=== PATIENT | female | born 1955 | race Caucasian/White ===

== ENCOUNTER 2023-10-13 00:11 | Emergency (ER) | payer OTHER, SELFPAY ==
--- NOTE | ~2023-10-13 | CT_ITS ---
Clinical Indication: Dyspnea, abdominal pain CT Scan of the Chest, Abdomen, and Pelvis with Contrast: Technique: Contiguous sections were acquired throughout the chest, abdomen, and pelvis after intraven ous administration of 100 cc of Omnipaque 350. Dose reduction technique was used on this scan by uti lizing automated exposure control and iterative reconstruction technique. The dose-length product (DL P) was 4515.75 mGy-cm. Findings: There is no evidence of any significant mediastinal, hilar or axillary lymphadenopathy. The mediastin al soft tissues appear normal. No pulmonary nodule seen. No aortic aneurysm or dissection. There is no evidence of pleural or pericardial effusion. The lungs are clear. No pulmonary nodules or infiltrates are noted. The liver, spleen, pancreas, gallbladder, adrenals and right kidney are within normal limits. 5 mm n on-obstructing left renal stone noted. No evidence of aortic aneurysm. No lymphadenopathy. No bowel obstruction or bowel wall thickening. There is no evidence to suggest acute appendicitis. Th ere is a moderate to large low anterior ventral fat-containing hernia. Urinary bladder is unremarkable. No pelvic mass seen. No ascites. Impression: No acute abnormality seen. No pulmonary embolus. 5 mm nonobstructing left renal stone. Moderate to large low anterior ventral fat-containing hernia. Reviewed, dictated and finalized at [facility]. Impression: No acute abnormality seen. No pulmonary embolus. 5 mm nonobstructing left renal stone. Moderate to large low anterior ventral fat-containing hernia.
[2023-10-13 00:10] VITALS: BP 160/120; PULSE 98; RESP 15; TEMP 36.6; O2SAT 97
[2023-10-13 01:18] LABS: Basophils Percent Auto 0.3 % (0.2-1.2); Eosinophils Absolute Auto 0.1 K/mm3 (0-0.3); Hematocrit 43.7 % (37.0-47.0); Hemoglobin 14.4 g/dL (12.0-15.0); Immature Granulocyte Absolute 0.04 K/mm3 (0.00-0.031); Immature Granulocyte Percent A 0.6 % (0-0.5); Lymphocytes Absolute Auto 1.89 K/mm3 (0.9-3.2); Lymphocytes Percent Auto 26.8 % (18.3-44.2); Mean Platelet Volume 10.4 fl (7.4-10.4); Monocytes Absolute Auto 0.5 K/mm3 (0.1-0.6); Neutrophils Absolute Auto 4.5 K/mm3 (1.3-6.7); Neutrophils Percent Auto 64.3 % (45.5-73.1); Platelet Count Result 203 k/mm3 (150-375); Red Blood Count 4.37 M/mm3 (4.2-5.4); Red Cell Distribution Width 13.4 % (11.5-14.5); White Blood Count 7.1 K/mm3 (4.5-10.0)
[2023-10-13 01:27] LABS: Alanine Aminotransferase 25 U/L (6-35); Albumin Level 4.3 g/dL (3.5-5.1); Alkaline Phosphatase 59 U/L (38-126); Anion Gap 9 mmol/L (4-12); Aspartate Amino Transferase 31 U/L (14-36); Bilirubin,Total 0.6 mg/dL (0.2-1.3); Blood Urea Nitrogen 17 mg/dL (7-17); Calcium 9.5 mg/dL (8.4-10.2); Carbon Dioxide 26 mmol/L (22-30); Chloride 106 mmol/L (98-107); Estimated CRCL calculation 91 ml/min; Estimated Glomerular Filt Rate > 60; Glucose 184 mg/dL (65-110); Lipase 65 U/L (23-300); Potassium 3.9 mmol/L (3.4-5.0); Sodium 141 mmol/L (137-145)
[2023-10-13 02:07] LABS: Appearance Urine Cloudy (Clear); Bacteria Urine None Seen /hpf; Bilirubin Urine Negative (Negative); Blood Urine Negative (Negative); Color Urine Yellow (Yellow); Glucose Urine UA Negative (Negative); Ketones Urine 1+ mg/dL (Negative); Leukocyte Esterase Ur Negative LEU/UL (Negative); Need Manual Microscopic Reviewed; Nitrate Urine Negative (Negative); Protein Urine 1+ mg/dL (Negative); RBC Urine 0-2 /hpf (0-2); Squamous Epithelial Cell Urine Few /hpf (Few); Urobilinogen Urine 0.2 mg/dL (<2.0); WBC Urine 0-5 /hpf (0-3)
[2023-10-13 02:08] LABS: Add Urine Microscopic? YES; Specific Grav Ur 1.031 (1.001-1.035)
--- NOTE | 2023-10-13 02:17 | ECG_ITS ---
SEE SCANNED COPY FOR CONFIRMED REPORT MTDD
--- NOTE | 2023-10-13 02:18 | ED.NAVMDI ---
HPI - Nausea/Vomiting/Diarrhea General Chief complaint: Nausea/Vomiting/Diarrhea <VIV Sotomayor Last Filed: 10/13/23 03:47> Stated complaint: diarrhea <VIV Sotomayor Last Filed: 10/13/23 03:47> Time Seen by Provider: 10/13/23 01:33 <VIV Sotomayor Last Filed: 10/13/23 03:47> History of Present Illness HPI Narrative: 68-year-old female with a history of type 2 diabetes, TIA x2, spina bifida, ZEKE, hypertension, hyperlipidemia, morbid obesity presents to the emergency department for watery diarrhea x4 days and difficulty taking a deep breath. Patient states for the past 4 days she has had multiple episodes of watery diarrhea. She denies fever, nausea or vomiting, focal abdominal pain. She is also reporting some difficulty with taking a full breath. She denies cough or congestion, chest pain, lower extremity edema or history of VTE. She is reporting some dysuria for 4 days as well but denies hematuria. States she was hospitalized in June 2023 for COVID pneumonia. She has not been hospitalized since. She is on 2-4 L of O2 nasal cannula per baseline. She has not had to increase her oxygen demand. She wear CPAP at night. Patient states she does not leave her house unless she has to come to the emergency department. She is nonambulatory and states her said stone multiple pads for her to urinate and throughout the day. States that she has not had a PCP in approximately 2 years because she was fired by her PCP she was seeing on telemedicine because the patient would not come into the office. States she has been getting some of her medications refilled when she goes to the emergency department at [facility]. She is currently not on anti hypertensive because she states she has tried 3 in the past and each of them gave her a headache. States her blood sugars at home around 200 but fluctuate depending on her diet. <VIV Sotomayor Last Filed: 10/13/23 03:47> Related Data Allergies/Adverse reactions: Allergies Allergy/AdvReac Type Severity Reaction Status Date / Time No Known Allergies Allergy Unknown Verified 10/13/23 00:16 <VIV Sotomayor Filed: 10/13/23 03:47> Review of Systems Review of Systems: CONSTITUTIONAL: Denies fever, chills, or sweats. EYES: Denies visual changes, redness, or discharge. ENT: Denies rhinorrhea, congestion, sore throat, or otalgia. CARDIOVASCULAR: Denies chest pain, palpitations, or edema. RESPIRATORY: See HPI GASTROINTESTINAL: See HPI GENITOURINARY: Denies dysuria or hematuria. SKIN: Denies rash or itching. MUSCULOSKELETAL: Denies back pain, joint pain, or myalgia. NEUROLOGIC: Denies headache, numbness, or weakness. PSYCHIATRIC: Denies anxiety or depression. <Myra Martinez PA-C - Last Filed: 10/13/23 03:47> Exam Narrative: GENERAL: Morbidly obese, nontoxic appearing HEAD: Normocephalic, atraumatic. EYES: PERRLA and EOMI. ENT: Nares clear, no rhinorrhea or epistaxis. Mucous membranes moist. NECK: Supple. CHEST: Clear to auscultation. No respiratory distress. HEART: Regular rate and rhythm. No murmur heard. Normal peripheral pulses. ABDOMEN: Quiet bowel sounds. Abdomen soft with mild tenderness to the pannus. No rebound, guarding or rigidity. EXTREMITIES: Normal range of motion. No edema. SKIN: Multiple scattered areas of excoriation and skin breakdown to the left labia, beneath the breast, beneath skin fold, inferior to the pannus. No signs of secondary infection NEURO: No focal deficits. Alert and oriented x3 <Myra Martinez PA-C - Last Filed: 10/13/23 03:47> Course MARKETING GRAPHICS SPECIALIST/PA Physician Supervision For this patient encounter, I reviewed the MARKETING GRAPHICS SPECIALIST or PA documentation, treatment plan, and medical decision making and had [id number] time with this patient. I performed all aspects of the MDM as documented. <Mayra Roberts MD - Last Filed: 10/13/23 06:55> Vital Signs Vital signs:
[2023-10-13 03:06] LABS: Lactic Acid Reflex 3.8 mmol/L (0.7-2.0)
[2023-10-13 03:13] LABS: Magnesium 1.8 mg/dL (1.6-2.3)
[2023-10-13 03:19] LABS: NT Pro B Type Natriuretic Pept 36 pg/mL (19.9-100)
[2023-10-13 03:26] LABS: Troponin I < 0.012 ng/mL (0.000-0.034)
[2023-10-13 03:32] LABS: Partial Thromboplastin Time 28.7 Seconds (22.3-36.8); Prothrombin Time 13.1 Seconds (11.1-14.7)
[2023-10-13] MEDS: SODIUM CHLORIDE 0.9% IV 1,000 ML 999 ML IV CONT ×2 (03:40→04:15)
[2023-10-13 05:52] LABS: Reflex Lactic Acid Yes or No Add Lactic
[2023-10-13 06:07] VITALS: BP 118/66; PULSE 76; RESP 15; O2SAT 98
== END 2023-10-13 06:53 | disposition home or self-care (01) ==
PROVIDERS: Physician Assistant; Emergency Provider Emergency Medicine
DX: K52.9 Noninfective gastroenteritis and colitis, unspecified (principal); I10 Essential (primary) hypertension; E11.9 Type 2 diabetes mellitus without complications; E78.5 Hyperlipidemia, unspecified; E66.01 Morbid (severe) obesity due to excess calories; Z68.44 Body mass index [BMI] 60.0-69.9, adult; G47.33 Obstructive sleep apnea (adult) (pediatric); Q05.9 Spina bifida, unspecified; Z99.81 Dependence on supplemental oxygen; Z86.73 Personal history of transient ischemic attack (TIA), and cerebral infarction without residual deficits; Z86.16 Personal history of COVID-19; Z87.01 Personal history of pneumonia (recurrent); Z79.84 Long term (current) use of oral hypoglycemic drugs
CPT/HCPCS: 36415; 71275; 74177; 80053; 81001; 81025; 83605; 83690; 83735; 83880; 84484; 85025; 85610; 85730; 93005; 96360; 96361; 99284; J7030; Q9967